=== PATIENT | male | born 1970 | race Caucasian/White ===

== ENCOUNTER 2024-07-08 18:37 | Emergency (ER) | payer OTHER, SELFPAY ==
[2024-07-08 18:47] VITALS: PULSE 93; O2SAT 97
[2024-07-08 18:50] VITALS: BP 146/79; PULSE 97; RESP 17; TEMP 38.3; O2SAT 96; BMI 40.6
--- NOTE | 2024-07-08 18:55 | DI.RAD.S_ITS ---
PROCEDURE: XR CHEST 2V INDICATIONS: cough, fever, sob TECHNIQUE: 2 views of the chest were acquired. COMPARISON: None. FINDINGS: Surgical changes and devices: None. Lungs and pleura: Lungs are clear. No pleural effusions or pneumothorax. Mediastinum: Mediastinal contours are normal. Heart size is normal. Bones and chest wall: No suspicious bony abnormalities. Soft tissues appear unremarkable. IMPRESSION: No acute cardiopulmonary abnormality is seen. Dictated by: Marifer Winchester M.D. on 07/08/2024 at 20:16 Approved by: Marifer Winchester M.D. on 07/08/2024 at 20:16
[2024-07-08 19:00] VITALS: PULSE 89; O2SAT 96
--- NOTE | 2024-07-08 19:00 | EKG_ITS ---
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
[2024-07-08] MEDS: ACETAMINOPHEN 325 MG TABLET 650 MG PO (19:16)
[2024-07-08 19:30] VITALS: PULSE 84; RESP 18; O2SAT 94
--- NOTE | 2024-07-08 19:48 | ED.SOB ---
HPI - SOB/Dyspnea General Chief Complaint: Shortness of Breath/Dyspnea Stated Complaint: Fever, Cough, SoB Time Seen by Provider: 07/08/24 19:48 Source: patient, RN notes reviewed and old records reviewed Mode of arrival: Ambulatory Limitations: no limitations History of Present Illness HPI Narrative: 53-year-old male 53-year-old male history of hypertension, diabetes type 2, anxiety who presents with complaint of fevers at home for the past day or 2 nasal congestion, dry cough. Little bit of chest discomfort shortness of breath last night. Patient states that feels improved. Patient has also been hoarse has not really had a sore throat. Has had some mild nausea but no vomiting. No diarrhea or constipation, no urinary symptoms. No new swelling in extremities. No rash or skin changes. Patient notes he had quite a bit of dental work Wednesday and . States he had all of his top teeth down ground down had caps placed. Had several extractions the following day in his supposed to follow-up for additional work in the future. He states he had injections lidocaine but did not have any sedation. He states still little bit painful but that has been improving. He has not noticed any redness, swelling or drainage. He has been taking [id number] pain medication with good effect. Patient's home medications include clonidine, amlodipine, venlafaxine, gabapentin, prazosin, he was sumatriptan, doxepin and hydroxyzine has not needed. Patient notes he used to be on metformin but was stopped by his physician. Has had prior colonoscopy. Denies any drug allergies. Attempting to stop smoking, occasional alcohol, no recreational drugs. Patient is accompanied by his family. Related Data Home Medications Medication Instructions Recorded Confirmed CHOLECALCIFEROL (VITAMIN D3) 400 unit PO QDAY ##0 04/06/12 (Vitamin D3) OMEPRAZOLE 20 mg PO QDAY ##0 04/06/12 PROPRANOLOL HYDROCHLORIDE 20 mg PO 5XDAY ##0 04/06/12 (Propranolol HCl) alprazolam 0.5 mg tablet 0.5 mg PO BIDP ##0 04/06/12 buspirone 15 mg tablet 10 mg PO BID ##0 04/06/12 citalopram 20 mg tablet 40 mg PO QDAY ##0 04/06/12 meloxicam 15 mg tablet (Mobic) 15 mg PO QDAY ##0 04/06/12 zolpidem 5 mg tablet 10 mg PO HS ##0 04/06/12 Allergies Allergy/AdvReac Type Severity Reaction Status Date / Time No Known Allergies Allergy Uncoded 07/08/24 18:52 Review of Systems Review of Systems ROS Unobtainable: All systems reviewed & are unremarkable except as noted in HPI and below Patient History Social History Smoking Status: Never smoker Smoking Status: Never smoker tobacco type: smokeless tobacco Exam Narrative Exam Narrative: GEN: well nourished, well appearing male, alert and oriented x 3, patient appears to be in mild distress. HEENT: Atraumatic, pupils are equal round reactive to light, extraocular movements are intact, nares positive for nasal congestion, TMs are clear with no fluid, there is no conjunctival pallor. Throat is clear without any exudates, erythema, tonsillar enlargement or uvular deviation, no swelling of the lips, tongue or oropharynx. Patient does not have any infectious changes to his in dentition that I appreciate. He is slightly hoarse. HEART: Regular rate and rhythm without murmur, clicks, rubs. No edema bilateral lower extremity LUNGS:Lungs clear to auscultation, no wheezes, rales, crackles, chest moves symmetrically, no tachypnea or accessory muscle use. Occasional dry cough. ABD:bowel sounds normal, soft, non-tender, no guarding, rebound, rigidity, no masses noted, no hepatosplenomegaly :No CVA tenderness MSCL: Non-tender, no muscle atrophy, muscles strength 5/5 upper and lower extremities, full range of motion, normal gait NEURO:CN 2-12 intact, sensation normal SKIN: No rash, erythema or other skin changes. Initial Vital Signs Initial Vital Signs: Vital Signs Pulse Rate 93 H 07/08/24 18:47 Pulse Oximetry 97 07/08/24 18:47 Course Orders Ordered: Discontinued Medications Acetaminophen (Acetaminophen 325 Mg Tablet) 650 mg PO NOW ONE Stop: 07/08/24 18:57 Last Admin: 07/08/24 19:16 Dose: 650 mg Documented By: ALANIS Vital Signs Vital signs: Vital Signs - 8 hr 07/08/24 18:47 07/08/24 18:50 07/08/24 19:00 Temperature 100.9 F H Pulse Rate 93 H 97 H 89 Respiratory Rate 17 Blood Pressure 146/79 H Pulse Oximetry 97 96 96 Oxygen Delivery Method Room Air 07/08/24 19:30 07/08/24 20:20 07/08/24 20:20 Temperature 99.6 F 99.6 F Pulse Rate 84 Respiratory Rate 18 Blood Pressure Pulse Oximetry 94 Oxygen Delivery Method MDM - SOB/Dyspnea Lab Data Labs: Lab Results 07/08/24 Range/Units 18:45 SARS-CoV-2 (PCR) Negative (Negative) Influenza A (RT-PCR) Flu a positive H (NEGATIVE) Influenza B (RT-PCR) Flu b negative (NEGATIVE) RSV (PCR) Negative (Negative) Point of Care Testing Glucose POC 146 ECG Data Attestation: I personally reviewed and interpreted this ECG as follows: Prior ECG tracings: not available for review Interpretation: EKG shows sinus rhythm rate of 90 RI 174 QRS of 94 QTC of 425, no acute ST changes appreciated nonspecific change. Patient was prior from 04/17/2020 10 overall similar with some nonspecific change. [facility] Narrative Medical decision making narrative: 53-year-old male did have recent dental work over 2 days and then developed some fevers, cough congestion little bit of shortness of breath but also hoarseness nasal congestion starting and into today. Patient overall appears nontoxic. His dental work does not appear to be infected he notes pain is improving and he has not had any swelling or redness associated. His symptoms seem much more consistent with upper respiratory infection possibly pneumonia. Patient states he did not have any sedation during his procedure. Patient is febrile. He notes he has had a lot of contact with different individuals recently more than he typically does. Patient tested positive for influenza A Chest x-ray chest x-ray is negative COVID/influenza/RSV is positive for influenza A EKG shows sinus rhythm rate of 90 RI 174 QRS of 94 QTC of 425, no acute ST changes appreciated nonspecific change. Patient received acetaminophen for fever Discharge Plan Departure Patient Disposition: Home Clinical Impression: Influenza A Instructions: Influenza Activity Restrictions/Additional Instructions: You have tested positive for influenza A, this is a viral infection that typically last 7-10 days. Continue with the acetaminophen and/ibuprofen for fevers, muscle aches and discomfort. Make sure you get plenty of hydration. Please return for worsening symptoms, new or worsening chest pain, increasing shortness of breath, lightheadedness or passing out, persistent vomiting, new swelling in your extremities or other new or concerning changes. Prescriptions: No Action citalopram 20 MG tablet 40 mg PO QDAY Qty: 0 buspirone 15 MG tablet 10 mg PO BID Qty: 0 OMEPRAZOLE 20 mg PO QDAY Qty: 0 PROPRANOLOL HYDROCHLORIDE (Propranolol HCl) 20 mg PO 5XDAY Qty: 0 meloxicam [Mobic] 15 MG tablet 15 mg PO QDAY Qty: 0 alprazolam 0.5 MG tablet 0.5 mg PO BIDP Qty: 0 zolpidem 5 MG tablet 10 mg PO HS Qty: 0 CHOLECALCIFEROL (VITAMIN D3) (Vitamin D3) 400 unit PO QDAY Qty: 0 Stand Alone Forms: Patient Portal/API/Survey
[2024-07-08 20:11] LABS: Influenza A - CEPHEID Flu A POSITIVE (NEGATIVE); Influenza B - CEPHEID Flu B NEGATIVE (NEGATIVE); Respiratory Syncytial Virus Negative (Negative)
[2024-07-08 20:13] LABS: COVID-19 CEPHEID 4-PLEX PCR Negative (Negative)
[2024-07-08 20:20] VITALS: TEMP 37.6
== END 2024-07-08 20:35 | disposition home or self-care (01) ==
PROVIDERS: Emergency Provider Emergency Medicine
DX: J10.1 Influenza due to other identified influenza virus with other respiratory manifestations (principal); I10 Essential (primary) hypertension; E11.9 Type 2 diabetes mellitus without complications; R07.9 Chest pain, unspecified; R06.02 Shortness of breath
CPT/HCPCS: 0241U; 71046; 82962; 93005; 93010; 99283; 99284

== ENCOUNTER 2025-05-21 11:20 | Emergency (ER) | payer OTHER, SELFPAY ==
--- OUTSIDE RECORDS SUMMARY | 2025-05-21 11:22 | XMS_ITS | Clinical Summary ---
Author Organization [facility] Address [address] [place] [id number] Care Team Providers Care Optimization Engineer Name Role Phone Pcp, None Selected Primary Care Provider Unavail able Allergies Active Allergy Reactions Criticality Noted Date Comments Quetiapine Anxiety Medium 01/27/2018 Medications prazosin (MINIPRESS) 5 mg capsule Take 5 mg by mouth nightly Active venlafaxine 75 mg tablet extended release 24hr 24 hr tablet Take 75 mg by mouth daily Active zolpidem (AMBIEN) 10 mg tablet Take 10 mg by mouth nightly as needed for sleep Active sodium,potassiu m,mag sulfates (SUPREP BOWEL PREP KIT) 17.5-3.13-1.6 gram recon soln Take 1 Package by mouth as needed (PRN) Please refer to the written instructions from the GI office. 2 Bottle 8 Active Active Problems Problem Noted Date Diagnosed Date PTSD (post-traumatic stress disorder) 01/27/2018 Panic disorder 01/27/2018 Anxiety 01/27/2018 Family history of colon cancer 01/27/2018 Overview (01/27/2018): Added automatically from request for surgery [id number] Colon cancer screening 01/27/2018 Overview (01/27/2018): Added automatically from request for surgery [id number] Family History Medical History Relation Comments Colon cancer Paternal Grandmother Relation Status Comments Paternal Grandmother Social History Tobacco Use Types Packs/Day Years Used Date Smoking Tobacco: Never Smokeless Tobacco: Former Quit: 11/21/2017 Alcohol Use Standard Drinks/Week Comments Yes 0 (1 standard drink = 0.6 oz pur e alcohol) occasionally Sex and Gender Information Value Date Recorded Sex Assigned at Not on file Legal Sex Male 7:52 PM PDT Gender Identity Not on file Sexual Orientation Not on file Last Filed Vital Signs Vital Sign Reading Time Taken Comments Blood Pressure 133/95 03/12/2020 2:25 PM PDT Pulse 70 03/12/2020 2:25 PM PDT Temperature 36.4 C (97.5 F) 03/12/2020 2:25 PM PDT Respiratory Rate 20 03/12/2020 11:00 AM PDT Oxygen Saturation 98% 03/12/2020 2:25 PM PDT Inhaled Oxygen Concentration - - Weight 127 kg (280 lb) 03/24/2018 9:13 AM PDT Height 188 cm (6' 2) 03/24/2018 9:13 AM PDT Body Mass Index 35.95 03/24/2018 9:13 AM PDT Plan of Treatment Health Maintenance Due Date Last Done Comments PSA Screening Discussion 1970 MMR Vaccines (1 of 1 - Stand geo series) 1970 Depression Screening (PHQ-2) 1981 DTaP,Tdap,and Td Vaccines (1 - Tdap) 1988 Hepatitis B Vaccines (1 of 3 - 19+ 3-dose series) 1988 Colorectal Cancer Screening (FOBT) 2014 Colorectal Cancer Screening (Fecal DNA) 2014 HM Pneumococcal Adult 50+ (1 of 1 - PCV) 08/14/2019 Zoster Vaccines (1 of 2) 08/14/2019 COVID-19 Vaccine (1 - 2024-2 6 season) 2025 Influenza Vaccine (#1) 2025 01/14/2017 Colorectal Cancer Screening (Colonoscopy) 03/24/2028 03/24/2018 Colorectal Cancer Screening Combined 03/24/2028 RSV Patients Over 60 years O R qualifying ( Patients) (1 - 1-dose 75+ series) 2044 HPV Vaccines Aged Out No longer eligi ble based on patient's age to complete this topic Hepatitis A Vaccines Aged Out No long er eligible based on patient's age to complete this topic IPV Vaccines Aged Out No longer eligi ble based on patient's age to complete this topic Insurance [place] [address] [place] [address] [place] Advance Directives * Full Code (Latest Code Status on File) Date Activated Date Inactivated Comments 03/24/2018 9:17 AM 03/24/2018 12:42 PM Care Teams Optimization Engineer Relationship Specialty Start Date End Date Pcp, None Selected PCP - General 09/07/24
[2025-05-21 11:42] VITALS: BP 122/88; PULSE 74; RESP 18; TEMP 36.6; O2SAT 97; BMI 37.2
--- NOTE | 2025-05-21 11:46 | DI.US.S_ITS ---
PROCEDURE: US SCROTUM INDICATIONS: right testicle enlargement. TECHNIQUE: Real-time scanning was performed of the scrotum and testicles, with image documentation. Color and pulse Doppler interrogation was performed of both testicles. COMPARISON: None. FINDINGS: Right: Testicle is normal in size at 4.6 x 3.1 x 3.3 cm, and homogenous in echotexture. Epididymis is normal in overall size and morphology. Large right simple hydrocele. No varicoceles. Overlying scrotal skin is thickened. Left: Testicle is normal in size at 4.6 x 3.2 x 2.3 cm, and homogeneous in echotexture. The left testicle is displaced superiorly secondary to large right hydrocele. Epididymis is normal in overall size and morphology. No hydrocele or varicoceles. Overlying scrotal skin is thickened. Doppler: Color and pulse Doppler demonstrate normal and symmetric arterial flow in both testicles. Miscellaneous: No evidence of hernia in bilateral inguinal canals. IMPRESSION: No sonographic evidence of testicular torsion. Large right simple hydrocele. Bilateral thickening of scrotal skin without increased hyperemia. Finding is nonspecific, can be seen in the setting of infection. Recommend correlation with physical exam. Approved by: Haley Galindo M.D.,Ph.D. on 05/21/2025 at 12:46
--- NOTE | 2025-05-21 11:53 | ED.MALEGU ---
HPI - Male Genitourinary <Mandy Montgomery PA-C - Last Filed: 05/21/25 13:16> General Chief complaint: Urogenital-Male Stated complaint: right swollen testicle pain Time Seen by Provider: 05/21/25 11:33 Source: patient Mode of arrival: Ambulatory History of Present Illness HPI Narrative: Mr. Cabrera is a pleasant 54-year-old gentleman with a past medical history of HTN, anxiety who presents to the emergency department for right testicular pain and swelling since last night. Patient noticed the pain last night while he was sleeping, he does not recall any inciting event or lifting type injury. He now notices that his entire scrotum is swollen and he has a constant pain on the right side that is sometimes worse. He has never experienced this before. He is not having any difficulty with urination, dysuria or hematuria. Denies diarrhea, constipation, fevers, chills, flu-like symptoms, concerned for STD. Denies any prior abdominal surgeries. Related Data Home Medications ?Medication ?Instructions ?Recorded ?Confirmed CHOLECALCIFEROL (VITAMIN D3) 400 unit PO QDAY ##0 04/06/12 (Vitamin D3) OMEPRAZOLE 20 mg PO QDAY ##0 04/06/12 PROPRANOLOL HYDROCHLORIDE 20 mg PO 5XDAY ##0 04/06/12 (Propranolol HCl) alprazolam 0.5 mg tablet 0.5 mg PO BIDP ##0 04/06/12 buspirone 15 mg tablet 10 mg PO BID ##0 04/06/12 citalopram 20 mg tablet 40 mg PO QDAY ##0 04/06/12 meloxicam 15 mg tablet (Mobic) 15 mg PO QDAY ##0 04/06/12 zolpidem 5 mg tablet 10 mg PO HS ##0 04/06/12 Previous Rx's ?Medication ?Instructions ?Recorded clotrimazole 1 % topical cream 1 applic topical BID 2 weeks #45 05/21/25 grams doxycycline hyclate 100 mg capsule 100 mg PO BID 7 days #14 caps 05/21/25 Allergies Allergy/AdvReac Type Severity Reaction Status Date / Time No Known Allergies Allergy Uncoded 05/21/25 11:42 Review of Systems <Madny Montgomery PA-C - Last Filed: 05/21/25 13:16> Review of Systems ROS Unobtainable: All systems reviewed & are unremarkable except as noted in HPI and below Patient History <Mandy Montgomery PA-C - Last Filed: 05/21/25 13:16> Social History Smoking Status: Former smoker Smoking Status: Former smoker tobacco type: smokeless tobacco Exam <Mandy Montgomery PA-C - Last Filed: 05/21/25 13:16> Narrative Exam Narrative: GENERAL: 54 year old patient appears stated age. Overweight patient, in no acute distress. HEAD: Atraumatic. Normocephalic. EYES: No scleral icterus. No injection or drainage. NECK: Trachea midline. Cervical ROM intact. CARDIOVASCULAR: Regular rate RESPIRATORY: ?Nonlabored respirations. ?Speaking in clear, full sentences. ? GASTROINTESTINAL: Abdomen soft, non-tender, nondistended. Patient gave verbal consent for exam. Patient has normal-appearing uncircumcised penis with no erythema or edema of the foreskin. Patient has diffuse scrotal edema with tenderness to palpation on the right side, not focal to the testicle or epididymis. No tenderness on the left side. No erythema or increased warmth of the scrotal skin however there is some thickening of the scrotal skin. Erythema in bilateral groin folds. NEURO: AOx3. ?Clear speech. ?Moves all 4 extremities appropriately. SKIN: No rash or erythema of visible areas Initial Vital Signs Initial Vital Signs: Vital Signs Temperature 97.8 F 05/21/25 11:42 Pulse Rate 74 05/21/25 11:42 Respiratory Rate 18 05/21/25 11:42 Blood Pressure 122/88 05/21/25 11:42 Pulse Oximetry 97 05/21/25 11:42 Oxygen Delivery Method Room Air 05/21/25 11:42 <Ashley Orr DO - Last Filed: 05/22/25 09:17> Initial Vital Signs Initial Vital Signs: Vital Signs Temperature 97.8 F 05/21/25 11:42 Pulse Rate 74 05/21/25 11:42 Respiratory Rate 18 05/21/25 11:42 Blood Pressure 122/88 05/21/25 11:42 Pulse Oximetry 97 05/21/25 11:42 Oxygen Delivery Method Room Air 05/21/25 11:42 Course <Mandy Montgomery PA-C - Last Filed: 05/21/25 13:16> Orders Ordered: Discontinued Medications Ketorolac Tromethamine (Ketorolac 30 Mg/Ml Vial) 15 mg IV NOW ONE Stop: 05/21/25 11:54 Last Admin: 05/21/25 12:30 Dose: 15 mg Documented By: GAYLE Vital Signs Vital signs: Vital Signs - 8 hr 05/21/25 11:42 05/21/25 12:35 Temperature 97.8 F Pulse Rate 74 62 Respiratory Rate 18 16 Blood Pressure 122/88 138/87 Pulse Oximetry 97 97 Oxygen Delivery Method Room Air Room Air <Ashley Orr DO - Last Filed: 05/22/25 09:17> Orders Ordered: Discontinued Medications Ketorolac Tromethamine (Ketorolac 30 Mg/Ml Vial) 15 mg IV NOW ONE Stop: 05/21/25 11:54 Last Admin: 05/21/25 12:30 Dose: 15 mg Documented By: GAYLE Vital Signs Vital signs: Vital Signs - 8 hr 05/21/25 11:42 05/21/25 12:35 Temperature 97.8 F Pulse Rate 74 62 Respiratory Rate 18 16 Blood Pressure 122/88 138/87 Pulse Oximetry 97 97 Oxygen Delivery Method Room Air Room Air MDM - Male Genitourinary <Mandy Montgomery PA-C - Last Filed: 05/21/25 13:16> Medical Records Attestation: I reviewed the patient's medical records. Lab Data 05/21/25 11:55 05/21/25 11:55 Labs: Lab Results 05/21/25 05/21/25 Range/Units 11:55 12:25 WBC 7.0 (4.5-11.0) X10^3/uL RBC 4.98 (4.5-5.9) X10^6/uL Hgb 14.7 (13.5-17.5) g/dL Hct 42.3 (41-53) % MCV 84.9 (80-100) fL MCH 29.6 (26-34) PG MCHC 34.9 (30-36) % RDW 12.9 (11.6-14.8) % Plt Count 197 (150-400) X10^3/uL Neut % (Auto) 62.8 (50-75) % Lymph % (Auto) 27.3 (25-40) % [place] % (Auto) 6.9 (3-14) % Eos % (Auto) 2.2 (2-4) % Baso % (Auto) 0.8 (0-2) % Neut # (Auto) 4400 (1839-0326) /uL Lymph # (Auto) 1900 (5243-1295) /uL [place] # (Auto) 500 (0-900) /uL Eos # (Auto) 200 (0-450) /uL Baso # (Auto) 100 (0-100) /uL Sodium 133 L (137-145) mmol/L Potassium 3.7 (3.4-5.1) mmol/L Chloride 100 (98-107) mmol/L Carbon Dioxide 25 (22-32) mmol/L BUN 12 (9-20) mg/dL Creatinine 1.01 (0.66-1.25) mg/dL Estimated GFR > 60 (>60) mL/min BUN/Creatinine Ratio 11.9 (6-22) Glucose 214 H (70-99) mg/dL Lactate 1.0 (0.7-2.1) mmol/L Calcium 8.9 (8.4-10.2) mg/dL Total Bilirubin 0.8 (0.2-1.3) mg/dL AST 37 (17-59) IU/L ALT 53 H (<50) IU/L Alkaline Phosphatase 90 (38-126) U/L Total Protein 7.8 (6.3-8.2) g/dL Albumin 4.6 (3.5-5.0) g/dL Globulin 3.2 (1.7-4.1) g/dL Albumin/Globulin Ratio 1.4 (1.0-2.8) Lipase 138 (23-300) U/L Urine Color Yellow Urine Appearance Clear Urine pH 6.0 (4.5-8.0) Ur Specific [place] 1.015 (1.000-1.035) Urine Protein Negative (Negative) Urine Glucose (UA) Trace H (Negative) g/dL Urine Ketones Negative (NEGATIVE) Urine Occult Blood Negative (Negative) Urine Nitrate Negative (Negative) Urine Bilirubin Negative (NEGATIVE) Urine Urobilinogen 0.2 (0.2) E.U./dL Ur Leukocyte Esterase Negative (NEGATIVE) Urine RBC None seen (0-5/HPF) Urine WBC None seen (0-5/HPF) Ur Squamous Epith Cells None seen (0-5/HPF) Urine Bacteria None seen (None) Ur Culture Indicated? Cult not indicated Vol Urine Centrifuged 10ml (spun) MDM Narrative Medical decision making narrative: 54-year-old gentleman with a past medical history of HTN, anxiety who presents to the emergency department for right testicular pain and swelling since last night. States he does have a history of T2 dm but has not taken metformin due to improved levels over the last few years. Differential diagnosis includes but is not limited to hydrocele, varicocele, epididymitis, orchitis, scrotal cellulitis, testicular torsion, etc. On exam the patient is in no acute distress, nontoxic-appearing, all vital signs within normal limits. Abdomen is soft and nontender. He does have significant edema of the scrotum with tenderness on the right side. No erythema or increased warmth of the scrotal skin but it is somewhat thickened. He does have intertrigo in bilateral groin. We will obtain baseline lab work and start with ultrasound, we will treat with Toradol. Labs reassuring with normal WBC count 7.0, hemoglobin 14.7 hematocrit 42.3. Normal lactate 1.0. Slight elevation glucose 214, sodium corrected for hyperglycemia is 136. Normal potassium 3.7. BUN 12 creatinine 1.01. Very slight elevation ALT 53, normal AST 37. Lipase 138. Urinalysis with trace glucose, no signs of blood or infection. Ultrasound reveals no sonographic evidence of testicular torsion. No evidence of hernia. Large right hydrocele. Bilateral thickening of scrotal skin without increased hyperemia, finding is nonspecific, can be in the seen in the setting of infection, recommend correlation with physical exam. Printed and discussed imaging results with the patient. Due to his they can scrotal skin, we will treat with doxycycline b.i.d. x7 days for possible early scrotal cellulitis that is contributing to hydrocele. Recommended supportive care for hydrocele including rest, elevation of the scrotum, gentle icing of the scrotum, NSAIDs for pain, and urology follow up. We will also prescribe clotrimazole 1% cream to apply to the intertrigo in his bilateral groin folds x2 days. Discussed patient's elevated glucose, states that he is currently in the process of following up with the dietitian and he is motivated to get his diabetes under control. Discussed strict ER return precautions, PCP follow up in urology follow up. Patient verbalized understanding of all information and is agreeable with the plan. Doxycycline and clotrimazole cream sent to pharmacy of choice. He is stable for discharge home. <Ashley Kirby, DO - Last Filed: 05/22/25 09:17> Lab Data Labs: Lab Results 05/21/25 05/21/25 Range/Units 11:55 12:25 WBC 7.0 (4.5-11.0) X10^3/uL RBC 4.98 (4.5-5.9) X10^6/uL Hgb 14.7 (13.5-17.5) g/dL Hct 42.3 (41-53) % MCV 84.9 (80-100) fL MCH 29.6 (26-34) PG MCHC 34.9 (30-36) % RDW 12.9 (11.6-14.8) % Plt Count 197 (150-400) X10^3/uL Neut % (Auto) 62.8 (50-75) % Lymph % (Auto) 27.3 (25-40) % [place] % (Auto) 6.9 (3-14) % Eos % (Auto) 2.2 (2-4) % Baso % (Auto) 0.8 (0-2) % Neut # (Auto) 4400 (7764-9892) /uL Lymph # (Auto) 1900 (4555-8474) /uL [place] # (Auto) 500 (0-900) /uL Eos # (Auto) 200 (0-450) /uL Baso # (Auto) 100 (0-100) /uL Sodium 133 L (137-145) mmol/L Potassium 3.7 (3.4-5.1) mmol/L Chloride 100 (98-107) mmol/L Carbon Dioxide 25 (22-32) mmol/L BUN 12 (9-20) mg/dL Creatinine 1.01 (0.66-1.25) mg/dL Estimated GFR > 60 (>60) mL/min BUN/Creatinine Ratio 11.9 (6-22) Glucose 214 H (70-99) mg/dL Lactate 1.0 (0.7-2.1) mmol/L Calcium 8.9 (8.4-10.2) mg/dL Total Bilirubin 0.8 (0.2-1.3) mg/dL AST 37 (17-59) IU/L ALT 53 H (<50) IU/L Alkaline Phosphatase 90 (38-126) U/L Total Protein 7.8 (6.3-8.2) g/dL Albumin 4.6 (3.5-5.0) g/dL Globulin 3.2 (1.7-4.1) g/dL Albumin/Globulin Ratio 1.4 (1.0-2.8) Lipase 138 (23-300) U/L Urine Color Yellow Urine Appearance Clear Urine pH 6.0 (4.5-8.0) Ur Specific [place] 1.015 (1.000-1.035) Urine Protein Negative (Negative) Urine Glucose (UA) Trace H (Negative) g/dL Urine Ketones Negative (NEGATIVE) Urine Occult Blood Negative (Negative) Urine Nitrate Negative (Negative) Urine Bilirubin Negative (NEGATIVE) Urine Urobilinogen 0.2 (0.2) E.U./dL Ur Leukocyte Esterase Negative (NEGATIVE) Urine RBC None seen (0-5/HPF) Urine WBC None seen (0-5/HPF) Ur Squamous Epith Cells None seen (0-5/HPF) Urine Bacteria None seen (None) Ur Culture Indicated? Cult not indicated Vol Urine Centrifuged 10ml (spun) Discharge Plan Departure Patient Disposition: Home Clinical Impression: Hydrocele, right, Cellulitis, scrotum, Hyperglycemia Instructions: DI for Hydrocele-Adult Activity Restrictions/Additional Instructions: Dear Mr. Cabrera, Thank you for coming to the emergency department. Today you were evaluated for pain and swelling of your right testicle. Your imaging revealed a hydrocele which is fluid around the testicle. You do have some thickening of the testicular skin so I am treating you with oral antibiotics to treat possible skin infection. Please use supportive underwear to help elevate the testicles, gently ice the testicles, use Tylenol and ibuprofen to help with the pain, and follow up with Urology. You have also been prescribed a topical antifungal cream to apply to the groin folds for fungal rash. Your blood sugar was elevated today at 214. Please follow up with your primary care doctor and a dietitian for further management of diabetes. Increase your hydration and decrease carbohydrates in your diet. Please return to the emergency department immediately if you develop new or worsening symptoms such as severe pain, redness of the scrotum, fevers, chills or flu symptoms, difficulty urinating or any other concerns. Please follow up with your primary care doctor within the next 2-3 days for ER follow-up. (If you do not have a PCP you can call [phone]. ?to schedule an appointment with an [facility] Primary Care Provider) IF YOU DEVELOP ANY NEW OR WORSENING SYMPTOMS, RETURN TO THE ER! Please read the attached instructions, they highlight more specific treatments and interventions for you at home. Thank you for letting me participate in your care, Mandy Montgomery PA-C Prescriptions: New doxycycline hyclate 100 mg capsule 100 mg PO BID 7 Days Qty: 14 0RF clotrimazole 1 % cream 1 applic topical BID 14 Days Qty: 45 0RF Rx Instructions: Apply to groin folds. No Action citalopram 20 MG tablet 40 mg PO QDAY Qty: 0 buspirone 15 MG tablet 10 mg PO BID Qty: 0 OMEPRAZOLE 20 mg PO QDAY Qty: 0 PROPRANOLOL HYDROCHLORIDE (Propranolol HCl) 20 mg PO 5XDAY Qty: 0 meloxicam [Mobic] 15 MG tablet 15 mg PO QDAY Qty: 0 alprazolam 0.5 MG tablet 0.5 mg PO BIDP Qty: 0 zolpidem 5 MG tablet 10 mg PO HS Qty: 0 CHOLECALCIFEROL (VITAMIN D3) (Vitamin D3) 400 unit PO QDAY Qty: 0 Referrals: Jeovanny Velazquez DO [Physician, Urology] Referral Note: hydrocele Stand Alone Forms: Patient Portal/API ED Sign-out <Ashley Orr DO - Last Filed: 05/22/25 09:17> Cosign ED Attending Nealature Attestation: I was available for consultation.
[2025-05-21 12:10] LABS: Add Manual Diff / Slide Review NO; Hematocrit 42.3 % (41-53); Hemoglobin 14.7 g/dL (13.5-17.5); Lymphocytes Absolute Auto 1900 /uL (1100-4500); Mean Corpuscular HGB Conc 34.9 % (30-36); Mean Corpuscular Hemoglobin 29.6 PG (26-34); Mean Corpuscular Volume 84.9 fL (80-100); Platelet Count 197 X10^3/uL (150-400)
[2025-05-21 12:22] LABS: Lactate (Lactic Acid) 1.0 mmol/L (0.7-2.1)
[2025-05-21 12:23] LABS: Alanine Aminotransferase 53 IU/L (<50); Albumin 4.6 g/dL (3.5-5.0); Albumin Globulin Ratio 1.4 (1.0-2.8); Alkaline Phosphatase 90 U/L (38-126); Blood Urea Nitrogen 12 mg/dL (9-20); Calcium 8.9 mg/dL (8.4-10.2); Carbon Dioxide 25 mmol/L (22-32); Chloride 100 mmol/L (98-107); Estimated Glomerular Filt Rate > 60 mL/min (>60); Globulin 3.2 g/dL (1.7-4.1); Glucose 214 mg/dL (70-99); HEMOLYSIS < 15 (0-50); Lipase 138 U/L (23-300); Potassium 3.7 mmol/L (3.4-5.1); Sodium 133 mmol/L (137-145); Total Protein 7.8 g/dL (6.3-8.2)
[2025-05-21] MEDS: KETOROLAC 30 MG/ML VIAL 15 MG IV (12:30)
[2025-05-21 12:35] VITALS: BP 138/87; PULSE 62; RESP 16; O2SAT 97
[2025-05-21 12:43] LABS: Appearance Urine UA CLEAR; Bilirubin Urine UA NEGATIVE (NEGATIVE); Color Urine UA YELLOW; Glucose Urine UA TRACE g/dL (Negative); Ketones Urine UA NEGATIVE (NEGATIVE); Leukocyte Esterase Urine UA NEGATIVE (NEGATIVE); Nitrite Urine UA NEGATIVE (Negative); Occult Blood Urine UA NEGATIVE (Negative); Protein Urine UA NEGATIVE (Negative); Specific Gravity Urine UA 1.015 (1.000-1.035); Urobilinogen Urine UA 0.2 E.U./dL (0.2); pH Urine UA 6.0 (4.5-8.0)
[2025-05-21 12:45] LABS: Culture Indicated Urine Cult Not Indicated
[2025-05-21 13:20] VITALS: BP 144/82; PULSE 63; RESP 14; O2SAT 98
== END 2025-05-21 13:23 | disposition home or self-care (01) ==
PROVIDERS: Emergency Provider Physician Assistant
DX: N43.3 Hydrocele, unspecified (principal); N49.2 Inflammatory disorders of scrotum; R73.9 Hyperglycemia, unspecified; I10 Essential (primary) hypertension; Z87.891 Personal history of nicotine dependence
CPT/HCPCS: 36415; 76870; 80053; 81001; 83605; 83690; 85025; 93975; 96374; 99284; J1885